=== PATIENT | female | born 1945 | race Caucasian/White ===

== ENCOUNTER 2017-01-13 11:40 | Observation (INO) | payer MEDICARE, OTHER ==
[2017-01-13 11:40] VITALS: BMI 21.9
--- NOTE | 2017-01-13 12:34 | C.PDOC ---
History Of Present Illness 71 Y/O FEMALE C/O WOUND AND REDNESS TO LEFT LOWER LEG. PT STATES SHE WAS EVALUATED BY DR. DANIELSON 2 WKS AGO AND GIVEN TETANUS SHOT. PT STATES INITIAL ITCHINESS, NOW NOTES DRAINAGE FROM AREA. DENIES FEVERS, CHILLS. NO HX OF DM. PT ACCOMPANIED BY SON AT BEDSIDE. PT TAKING UNKNOWN ABX, 500mg PER DAY FOR 7 DAYS, NOTES SHE FINISHED COURSE A COUPLE DAYS AGO. Time Seen by Provider: 01/13/17 12:17 Chief Complaint (Nursing): Abnormal Skin Integrity History Per: Patient, Family (SON) History/Exam Limitations: language barrier Onset/Duration Of Symptoms: Days Current Symptoms Are (Timing): Still Present Location Of Injury: Left: Leg Quality Of Symptoms: Draining Recent travel outside of the [place]: No Past Medical History Reviewed: Historical Data, Nursing Documentation, Vital Signs Vital Signs: Last Vital Signs Temp 98.4 F 01/13/17 11:59 Pulse 96 H 01/13/17 11:59 Resp 20 01/13/17 11:59 BP 151/83 H 01/13/17 11:59 Pulse Ox 99 01/13/17 15:47 - Medical History PMH: Arthritis (SLIGHT-GENERALIZED), Asthma (HOSPITALIZED X 2), HTN, Hypercholesterolemia - [facility] Procedures CATARAC PHACOEMULS/ASPIR (03/05/15) INSERT LENS AT CATAR EXT (03/05/15) Family History: States: Unknown Family Hx - Social History Hx Alcohol Use: No Hx Substance Use: No Review Of Systems Except As Marked, All Systems Reviewed And Found Negative. Constitutional: Negative for: Fever, Chills Skin: Positive for: Lesions (MULTIPLE LESIONS LEFT LOWER EXTREMITY) Neurological: Negative for: Weakness, Numbness Physical Exam - Physical Exam Appears: Non-toxic, No Acute Distress Skin: Warm, Dry Head: Atraumatic, Normacephalic Extremity: Normal ROM, Capillary Refill (< 2 SEC.), Swelling (GENERAL LOWER LEG SWELLING), Other (LESION 1 - MID LATERAL LEFT LOWER EXTREMITY: 5.0 x 5.0 cm AREA , WITH CENTRAL CRATER WITH PURULENT GRANULOMATOUS TISSUE, VESICULAR RING SURROUNDING WITH MULTIPLE SMALL BLISTERS IN RING PATTERN. LESION 2 - 2.0 X 2.O ROUND SIMILAR PRESENTATION, EARLY CRATER LESION DEVELOPING, NO PUS OR DISCHARGE) Pulses: Left Dorsalis Pedis: Normal, Right Dorsalis Pedis: Normal Neurological/Psych: Oriented x3, Normal Motor, Normal Sensation ED Course And Treatment - Laboratory Results Result Diagrams: 01/13/17 13:34 01/13/17 13:34 O2 Sat by Pulse Oximetry: 99 (RA) Pulse Ox Interpretation: Normal - Other Rad LEFT TIB/FIB XRAY X-Ray: Viewed By Me, Read By Radiologist Interpretation: FINDINGS: BONES: There is no acute fracture or bone destruction. Bone alignment and mineralization are normal. JOINT SPACES: Unremarkable. OTHER FINDINGS: There is diffuse subcutaneous edema and soft tissue calcifications. IMPRESSION: No acute fracture or bone destruction. Diffuse subcutaneous edema. Progress - Re-Evaluation Re-evaluation Note: 01/13/17 13:05 TIB/FIB XR, BLOODWORK AND CULTURES ORDERED. TX VANCO AND ANCEF IV. 01/13/17 15:05 D/W CM GRACIA THANH GRAF IN ER 01/13/17 16:10 D/W DR ALVAREZ C/F PMD WILL ADMIT - Data Reviewed Data Reviewed: Lab, Diagnostic imaging, Old records - Continuity of Care Discussed patient case with:: Patient, Family-HIPPA compliant, Covering for PMD Disposition Counseled Patient/Family Regarding: Studies Performed, Diagnosis, Need For Followup, Rx Given - Disposition Referrals: YOUR,PMD [Other] Disposition: HOSPITALIZED Disposition Time: 15:01 Condition: STABLE Additional Instructions: [place] SEGN LO DIRIGIDO. SEGUIMIENTO CON CAGE PMD ESTA SEMANA. DEVOLUCIN EN QASIM DE FIEBRE> 100.6, SINTOMAS FALSOS. Print Language: HUNGARIAN - POA Present On Arrival: None - Clinical Impression Clinical Impression: Cellulitis, Chronic wound of extremity - Scribe Statement The provider has reviewed the documentation as recorded by the Sandraibchristy Crooks Provider Scribe Attestation: All medical record entries made by the Scribe were at my direction and personally dictated by me. I have reviewed the chart and agree that the record accurately reflects my personal performance of the history, physical exam, medical decision making, and the department course for this patient. I have also personally directed, reviewed, and agree with the discharge instructions and disposition. Decision To Admit - Pt Status Changed To: Hospital Disposition Of: Observation - . Bed Request Type: Regular Admitting Physician: Jacques Alvarez Patient Diagnosis: Cellulitis, Chronic wound of extremity
[2017-01-13] MEDS ORDERED: ceFAZolin 1 gm FROZEN Premix 50 ML IVPB ONE (13:11)
--- NOTE | 2017-01-13 13:26 | RAD ---
PROCEDURE: Radiographs of the left tibia and fibula. HISTORY: INVASIVE WOUND COMPARISON: None available. TECHNIQUE: Frontal and lateral views obtained. FINDINGS: BONES: There is no acute fracture or bone destruction. Bone alignment and mineralization are normal. JOINT SPACES: Unremarkable. OTHER FINDINGS: There is diffuse subcutaneous edema and soft tissue calcifications. IMPRESSION: No acute fracture or bone destruction. Diffuse subcutaneous edema.
[2017-01-13 13:38] LABS: BASO # 0.1 K/uL (0.0-0.2); BASO % 1.2 % (0.0-2.0); EOS # 0.4 K/uL (0.0-0.7); EOS % 5.1 % (0.0-4.0); HEMATOCRIT 36.6 % (34.0-47.0); LYMPH # 1.4 K/uL (1.0-4.3); LYMPH % 19.5 % (20.0-40.0); MEAN CELL VOLUME 90.6 fL (81.0-99.0); MEAN CORPUSCULAR HEMOGLOBIN 29.4 pg (27.0-31.0); MEAN CORPUSCULAR HGB CONC 32.4 g/dL (33.0-37.0); MEAN PLATELET VOLUME 8.4 fL (7.2-11.7); MONO # 0.7 K/uL (0.0-0.8); MONO % 9.3 % (0.0-10.0); NRBC % 0.1 % (0.0-2.0); RED CELL DISTRIBUTION WIDTH 15.5 % (11.5-14.5); WHITE BLOOD COUNT 7.1 K/uL (4.8-10.8)
[2017-01-13] MEDS: ceFAZolin IV 1 gm in Dextrose 50 ML IVPB STA ×2 (13:45→13:56)
[2017-01-13 13:47] LABS: CHLORIDE 99 mmol/L (98-107)
[2017-01-13 13:48] LABS: POTASSIUM 3.5 mmol/L (3.6-5.2); SODIUM 138 mmol/L (132-148)
[2017-01-13 13:50] LABS: GFR AFRICAN-AMERICAN > 60
[2017-01-13 13:51] LABS: BLOOD UREA NITROGEN 18 mg/dL (7-17); CALCIUM 8.6 mg/dl (8.6-10.4); CARBON DIOXIDE 25 mmol/L (22-30); GLUCOSE,RANDOM 137 mg/dL (65-105)
--- NOTE | 2017-01-13 16:29 | CP.PCM.HP ---
<Mariel Putnam - Last Filed: 01/13/17 17:11> History of Present Illness - History of Present Illness History of Present Illness: Internal medicine H & P for Hospitalist Service- Mariel Putnam, PGY-1 Pt S & E at bedside. 71F w/PMH sig for HTN, HLD, Asthma, OA, admitted for Left lateral leg pruritis x 3wks. Pt started scratching area with resulting lesion now present on left lateral calf approx [id number]. Reports intermittent pain 2/10, dull and non- radiating. Pt reports increased itchiness and drainage of clear yellow fluid that started 1 day VISCOSITY TESTER. Pt reports applying alcohol, neosporin, vaseline, and band aids without resolution. No inciting or aggravating factors identified. Denies N/V/F/C, CP, SOB, cough, numbness, tingling, weakness, changes in bowel or bladder habits, changes in eating habits, trauma to area. PMH: HTN, HLD, Asthma, OA PSH: BL catacter surgery in 2016 All:Lauryn SH:Patient lives with son, denies any history of tobacco use, alcohol use, drug use PMD:Bernie Present on Admission - Present on Admission Any Indicators Present on Admission: No History of DVT/PE: No History of Uncontrolled Diabetes: No Urinary Catheter: No Decubitus Ulcer Present: No Review of Systems - Review of Systems All systems: reviewed and no additional remarkable complaints except - Constitutional Constitutional: absent: Chills, Fever, Weakness - EENT Eyes: absent: Change in Vision Nose/Mouth/Throat: absent: Sore Throat - Cardiovascular Cardiovascular: Leg Ulcers. absent: Chest Pain, Dyspnea, Palpitations - Respiratory Respiratory: absent: Cough, Dyspnea - Gastrointestinal Gastrointestinal: absent: Constipation, Diarrhea, Nausea, Vomiting - Genitourinary Genitourinary: absent: Difficulty Urinating, Urinary Frequency - Musculoskeletal Musculoskeletal: absent: Numbness, Tingling - Integumentary Integumentary: Skin Ulcer, Swelling - Neurological Neurological: absent: Numbness, Tingling Past Patient History - Past Medical History & Family History Past Medical History?: Yes - Past Social History Smoking Status: Never Smoked - CARDIAC Hx Hypercholesterolemia: Yes Hx Hypertension: Yes - PULMONARY Hx Asthma: Yes (HOSPITALIZED X 2) - NEUROLOGICAL Hx Neurological Disorder: No - HEENT Hx HEENT Problems: No Hx Cataracts: Yes (left EYE) - RENAL Hx Chronic Kidney Disease: No - ENDOCRINE/METABOLIC Hx Endocrine Disorders: No - HEMATOLOGICAL/ONCOLOGICAL Hx Blood Disorders: No - INTEGUMENTARY Hx Dermatological Problems: No - MUSCULOSKELETAL/RHEUMATOLOGICAL Hx Arthritis: Yes (SLIGHT-GENERALIZED) - GASTROINTESTINAL Hx Gastrointestinal Disorders: No - GENITOURINARY/GYNECOLOGICAL Hx Genitourinary Disorders: No - PSYCHIATRIC Hx Substance Use: No - SURGICAL HISTORY Hx Surgeries: Yes Hx Cataract Extraction: Yes (RIGHT EYE) Hx Tubal Ligation: Yes (PT. BELIEVES -NOT SURE) - ANESTHESIA Hx Anesthesia: Yes Hx Anesthesia Reactions: No Hx Malignant Hyperthermia: No Meds Allergies/Adverse Reactions: Allergies Allergy/AdvReac Type Severity Reaction Status Date / Time No Known Allergies Allergy Verified 02/27/15 12:00 Physical Exam - Constitutional Appears: Non-toxic, No Acute Distress - Head Exam Head Exam: ATRAUMATIC, NORMAL INSPECTION, NORMOCEPHALIC - Eye Exam Eye Exam: EOMI, Normal appearance, PERRL Pupil Exam: NORMAL ACCOMODATION, PERRL - ENT Exam ENT Exam: Mucous Membranes Moist, Normal Exam - Neck Exam Neck exam: Positive for: Full Rom, Normal Inspection - Respiratory Exam Respiratory Exam: Clear to Auscultation Bilateral, NORMAL BREATHING PATTERN. absent: Rales, Rhonchi, Wheezes, Respiratory Distress, Stridor - Cardiovascular Exam Cardiovascular Exam: REGULAR RHYTHM, +S1, +S2 - GI/Abdominal Exam GI & Abdominal Exam: Normal Bowel Sounds, Soft. absent: Tenderness - Extremities Exam Extremities exam: Positive for: pedal edema (trace). Negative for: normal inspection (left lateral leg with small ulceration- non tender, slightly indurated, slightly erythematous, approx 1 x 2 cm, no fluctuance, no drainage expressed ), tenderness - Back Exam Back exam: FULL ROM, NORMAL INSPECTION. absent: paraspinal tenderness - Neurological Exam Neurological exam: Alert, CN II-XII Intact, Oriented x3 - Psychiatric Exam Psychiatric exam: Normal Affect, Normal Mood - Skin Skin Exam: Dry, Warm Additional comments: see extremity exam for left leg skin findings Results - Vital Signs Recent Vital Signs: Last Vital Signs Temp 98.4 F 01/13/17 11:59 Pulse 96 H 01/13/17 11:59 Resp 20 01/13/17 11:59 BP 151/83 H 01/13/17 11:59 Pulse Ox 99 01/13/17 16:12 - Labs Result Diagrams: 01/13/17 13:34 01/13/17 13:34 Labs: Laboratory Results - last 24 hr 01/13/17 13:34 WBC 7.1 RBC 4.04 Hgb 11.9 Hct 36.6 MCV 90.6 MCH 29.4 MCHC 32.4 L RDW 15.5 H Plt Count 217 MPV 8.4 Neut % (Auto) 64.9 Lymph % (Auto) 19.5 L [place] % (Auto) 9.3 Eos % (Auto) 5.1 H Baso % (Auto) 1.2 Neut # 4.6 Lymph # 1.4 [place] # 0.7 Eos # 0.4 Baso # 0.1 Sodium 138 Potassium 3.5 L Chloride 99 Carbon Dioxide 25 Anion Gap 17 BUN 18 H Creatinine 1.0 Est GFR ( Amer) > 60 Est GFR (Non-Af Amer) 54 Random Glucose 137 H Calcium 8.6 Assessment & Plan - Assessment and Plan (Free Text) Assessment: Cellulitic wound of left lateral leg No leukocytosis Afebrile FU Blood cxr FU Urine cxr X-ray of Tib/Fib w/diffuse subQ edema Cefazolin 500mg Q8H [facility] Wound care - Bacitracin Hx asthma Cont home med: Advair, Spiriva Hx HTN Cont home med: Lisinopril Hx HLD Cont home med: Crestor Hx Arthritis Tylenol PRN Cont home med: [employer] [place] 3, Vitamin B complex GI/DVT ppx Lovenox SCDs contraindicated due to leg wound Pepcid Ambulate Dispo Admit to Med Surg VS Q4H [facility] PT/OT Activity as lola OOBTC DW attending - Date & Time Date: 01/13/17 Time: 16:28 Decision To Admit - Pt Status Changed To: Hospital Disposition Of: Observation - . Bed Request Type: Regular Admitting Physician: Jacques Alvarez <Jacques Alvarez - Last Filed: 01/14/17 14:28> Results - Vital Signs Recent Vital Signs: Last Vital Signs Temp 97.9 F 01/14/17 07:46 Pulse 72 01/14/17 07:46 Resp 20 01/14/17 07:46 BP 128/84 01/14/17 07:46 Pulse Ox 97 01/14/17 07:46 - Labs Result Diagrams: 01/14/17 08:03 01/14/17 08:03 Labs: Laboratory Results - last 24 hr 01/14/17 08:03 WBC 5.3 RBC 4.08 Hgb 12.1 Hct 37.1 MCV 91.0 MCH 29.6 MCHC 32.5 L RDW 15.2 H Plt Count 210 MPV 7.7 Neut % (Auto) 58.8 Lymph % (Auto) 23.8 [place] % (Auto) 8.4 Eos % (Auto) 7.7 H Baso % (Auto) 1.3 Neut # 3.1 Lymph # 1.3 [place] # 0.4 Eos # 0.4 Baso # 0.1 Sodium 140 Potassium 3.9 Chloride 100 Carbon Dioxide 28 Anion Gap 16 BUN 15 Creatinine 0.9 Est GFR ( Amer) > 60 Est GFR (Non-Af Amer) > 60 Random Glucose 109 H Calcium 8.2 L Total Bilirubin 0.4 AST 30 ALT 29 Alkaline Phosphatase 80 Total Protein 7.0 Albumin 3.9 Globulin 3.0 Albumin/Globulin Ratio 1.3 Attending/Attestation - Attestation I have personally seen and examined this patient.: Yes I have fully participated in the care of the patient.: Yes I have reviewed all pertinent clinical information: Yes Notes (Text): 01/14/17 14:27 Patient was seen and examined at bedside with the resident at the time of admission Patient failed outpatient therapy for cellulitis. We will admit the patient for IV antibiotics We will also obtain wound care evaluation for the patient Discussed the plan of care with the resident the time of admission and agrees with the above history and physical and assessment/plan.
[2017-01-13] MEDS ORDERED: [UNRECOGNIZED DRUG - OTHER] PO SCH (16:45)
[2017-01-13] MEDS ORDERED: MULTIVIT PO SCH (16:45)
[2017-01-13] MEDS ORDERED: IRON PO SCH (16:45)
[2017-01-13] MEDS: Vitamin B Complex/Vitamin C Tab PO SCH (17:25)
[2017-01-13] MEDS: Omega-3-Acid Ethyl Esters 1 GM Cap PO SCH (17:26)
[2017-01-13] MEDS: Enoxaparin 40 mg Syringe SC SCH (17:31)
[2017-01-13 18:49] VITALS: RESP 20
[2017-01-13] MEDS: Bacitracin 500 Units/gm Oint Foilpak UD TOP SCH (21:48)
[2017-01-14] MEDS: Bacitracin 500 Units/gm Oint Foilpak UD TOP SCH ×2 (05:25→18:26)
[2017-01-14 08:10] LABS: BASO # 0.1 K/uL (0.0-0.2); BASO % 1.3 % (0.0-2.0); EOS # 0.4 K/uL (0.0-0.7); EOS % 7.7 % (0.0-4.0); HEMATOCRIT 37.1 % (34.0-47.0); LYMPH # 1.3 K/uL (1.0-4.3); LYMPH % 23.8 % (20.0-40.0); MEAN CORPUSCULAR HEMOGLOBIN 29.6 pg (27.0-31.0); MEAN CORPUSCULAR HGB CONC 32.5 g/dL (33.0-37.0); MEAN PLATELET VOLUME 7.7 fL (7.2-11.7); MONO # 0.4 K/uL (0.0-0.8); MONO % 8.4 % (0.0-10.0); RED CELL DISTRIBUTION WIDTH 15.2 % (11.5-14.5); WHITE BLOOD COUNT 5.3 K/uL (4.8-10.8)
[2017-01-14 08:37] LABS: CHLORIDE 100 mmol/L (98-107); SODIUM 140 mmol/L (132-148)
[2017-01-14 08:38] LABS: POTASSIUM 3.9 mmol/L (3.6-5.2)
[2017-01-14 08:40] LABS: ALB/GLOB RATIO 1.3 (1.0-2.1); ALKALINE PHOSPHATASE 80 U/L (38-126); ALT/SGPT 29 U/L (9-52); AST/SGOT 30 U/L (14-36); BILIRUBIN,TOTAL 0.4 mg/dL (0.2-1.3); BLOOD UREA NITROGEN 15 mg/dL (7-17); CARBON DIOXIDE 28 mmol/L (22-30); GFR AFRICAN-AMERICAN > 60; GLUCOSE,RANDOM 109 mg/dL (65-105)
[2017-01-14 08:41] LABS: CALCIUM 8.2 mg/dl (8.6-10.4)
[2017-01-14] MEDS: Vitamin B Complex/Vitamin C Tab PO SCH (09:28)
[2017-01-14] MEDS: Enoxaparin 40 mg Syringe SC SCH (09:28)
[2017-01-14] MEDS: Omega-3-Acid Ethyl Esters 1 GM Cap PO SCH (09:28)
[2017-01-14] MEDS ORDERED: Potassium Chloride 20 mEq ER Tab PO ONE (10:00)
[2017-01-14] MEDS: Fluticasone-Salmeterol 250-50mcg Diskus IH SCH (10:46)
[2017-01-14] MEDS: Tiotropium 18 mcg Cap For Inhalation IH SCH (10:47)
--- NOTE | 2017-01-14 16:06 | CP.PCM.PN ---
<Mariel Putnam - Last Filed: 01/14/17 16:06> Subjective - Date & Time of Evaluation Date of Evaluation: 01/14/17 Time of Evaluation: 09:00 - Subjective Subjective: Internal medicine progress note for Hospitalist Service- Mariel Putnam, PGY-1 Pt S & E at bedside. Pt w/o complaints overnight. Denies N/V/F/C, SOB, CP, abdominal pain, LLE pain , itching. Sleeping ok, eating ok, ambulating ok. Objective - Vital Signs/Intake and Output Vital Signs (last 24 hours): Temp Pulse Resp BP Pulse Ox 97.9 F 72 20 128/84 97 01/14/17 07:46 01/14/17 07:46 01/14/17 07:46 01/14/17 07:46 01/14/17 07:46 Intake and Output: 01/14/17 01/14/17 06:59 18:59 Intake Total 600 Balance 600 - Medications Medications: Current Medications Acetaminophen (Tylenol 325mg Tab) 650 mg PO Q6 PRN PRN Reason: Pain, moderate (4-7) Bacitracin (Bacitracin) 1 ea TOP Q12H [facility] Last Admin: 01/14/17 05:25 Dose: 1 ea Enoxaparin Sodium (Lovenox) 40 mg SC DAILY [facility] Last Admin: 01/14/17 09:28 Dose: 40 mg Famotidine (Pepcid) 20 mg PO BID [facility] Last Admin: 01/14/17 09:28 Dose: 20 mg Cefazolin Sodium 500 mg/ (Sodium Chloride) 100 mls @ 200 mls/hr IVPB Q8H [facility] Last Admin: 01/14/17 13:14 Dose: 200 mls/hr Lisinopril (Zestril) 20 mg PO DAILY [facility] Last Admin: 01/14/17 09:28 Dose: 20 mg [id number] Ethyl Esters (Lovaza) 1 gm PO DAILY [facility] Last Admin: 01/14/17 09:28 Dose: 1 gm Pneumococcal Polyvalent Vaccine (Pneumovax 23 Vaccine) 0.5 ml IM .ONCE ONE Stop: 01/15/17 10:01 Rosuvastatin Calcium (Crestor) 5 mg PO HS [facility] Last Admin: 01/13/17 22:01 Dose: 5 mg Fluticasone/Salmeterol (Advair Diskus 250/50) 1 puff IH RQD [facility] Last Admin: 01/14/17 10:46 Dose: Not Given Tiotropium [place] (Spiriva) 18 mcg IH RQD [facility] Last Admin: 01/14/17 10:47 Dose: Not Given Vitamin B Complex/Vitamin C (Berocca) 1 tab PO DAILY [facility] Last Admin: 01/14/17 09:28 Dose: 1 tab - Labs Labs: 01/14/17 08:03 01/14/17 08:03 - Constitutional Appears: Non-toxic, No Acute Distress - Head Exam Head Exam: ATRAUMATIC, NORMAL INSPECTION, NORMOCEPHALIC - Eye Exam Eye Exam: EOMI, Normal appearance, PERRL Pupil Exam: NORMAL ACCOMODATION, PERRL - ENT Exam ENT Exam: Mucous Membranes Moist, Normal Exam - Neck Exam Neck Exam: Full ROM, Normal Inspection - Respiratory Exam Respiratory Exam: Clear to Ausculation Bilateral, NORMAL BREATHING PATTERN - Cardiovascular Exam Cardiovascular Exam: REGULAR RHYTHM, +S1, +S2 - GI/Abdominal Exam GI & Abdominal Exam: Soft, Normal Bowel Sounds. absent: Tenderness - Extremities Exam Extremities Exam: Full ROM. absent: Pedal Edema, Tenderness Additional comments: Left lateral leg with 2 non healing ulcerations, one is lateral approx 1 x 2 cm large, the other is more superficial 0.5 x 0.5 cm in diameter, very slightly erythematous, slightly indurated, no fluctuance noted, non tender - Back Exam Back Exam: Full ROM, NORMAL INSPECTION - Neurological Exam Neurological Exam: Alert, Awake, CN II-XII Intact, Normal Gait, Oriented x3 - Psychiatric Exam Psychiatric exam: Normal Affect, Normal Mood - Skin Skin Exam: Dry, Normal Color, Warm. absent: Intact (see extremity exam for skin findings) Assessment and Plan - Assessment and Plan (Free Text) Assessment: Cellulitic wound of left lateral leg No leukocytosis Afebrile FU Blood cxr FU Urine cxr Wound cx prelim pending X-ray of Tib/Fib w/diffuse subQ edema Cont cefazolin 500mg Q8H [facility] Wound care - Bacitracin Wound care referral Hx asthma Cont home med: Advair, Spiriva Hx HTN Cont home med: Lisinopril Hx HLD Cont home med: Crestor Hx Arthritis Tylenol PRN Cont home med: [place] 3, Vitamin B complex GI/DVT ppx Lovenox SCDs contraindicated due to leg wound Pepcid Ambulate Dispo HHD PT/OT Activity as lola OOBTC Discharge pending nursing wound care evaluation DW attending <Jacques Alvarez - Last Filed: 01/14/17 17:59> Objective - Vital Signs/Intake and Output Vital Signs (last 24 hours): Temp Pulse Resp BP Pulse Ox 98.0 F 72 20 144/77 99 01/14/17 15:00 01/14/17 16:21 01/14/17 15:00 01/14/17 15:00 01/14/17 15:00 Intake and Output: 01/14/17 01/14/17 06:59 18:59 Intake Total 600 800 Balance 600 800 - Medications Medications: Current Medications Acetaminophen (Tylenol 325mg Tab) 650 mg PO Q6 PRN PRN Reason: Pain, moderate (4-7) Bacitracin (Bacitracin) 1 ea TOP Q12H [facility] Last Admin: 01/14/17 05:25 Dose: 1 ea Enoxaparin Sodium (Lovenox) 40 mg SC DAILY [facility] Last Admin: 01/14/17 09:28 Dose: 40 mg Famotidine (Pepcid) 20 mg PO BID [facility] Last Admin: 01/14/17 09:28 Dose: 20 mg Cefazolin Sodium 500 mg/ (Sodium Chloride) 100 mls @ 200 mls/hr IVPB Q8H [facility] Last Admin: 01/14/17 13:14 Dose: 200 mls/hr Lisinopril (Zestril) 20 mg PO DAILY [facility] Last Admin: 01/14/17 09:28 Dose: 20 mg Cesue-1-[place]ou[place] Ethyl Esters (Lovaza) 1 gm PO DAILY [facility] Last Admin: 01/14/17 09:28 Dose: 1 gm Pneumococcal Polyvalent Vaccine (Pneumovax 23 Vaccine) 0.5 ml IM .ONCE ONE Stop: 01/15/17 10:01 Rosuvastatin Calcium (Crestor) 5 mg PO [facility] Last Admin: 01/13/17 22:01 Dose: 5 mg Fluticasone/Salmeterol (Advair Diskus 250/50) 1 puff IH RQD [facility] Last Admin: 01/14/17 10:46 Dose: Not Given Tiotropium [place] (Spiriva) 18 mcg IH RQD [facility] Last Admin: 01/14/17 10:47 Dose: Not Given Vitamin B Complex/Vitamin C (Berocca) 1 tab PO DAILY [facility] Last Admin: 01/14/17 09:28 Dose: 1 tab - Labs Labs: 01/14/17 08:03 01/14/17 08:03 Attending/Attestation - Attestation I have personally seen and examined this patient.: Yes I have fully participated in the care of the patient.: Yes I have reviewed all pertinent clinical information, including history, physical exam and plan: Yes Notes (Text): 01/14/17 17:57 Patient was seen and examined at bedside with the resident Leg cellulitis is improving Continue IV antibiotics Wound care evaluation is pending Discussed the plan of care with the resident and I agree with above history and physical and assessment/plan by the resident
[2017-01-15] MEDS: Bacitracin 500 Units/gm Oint Foilpak UD TOP SCH (05:02)
[2017-01-15 08:03] LABS: BASO # 0.1 K/uL (0.0-0.2); BASO % 1.1 % (0.0-2.0); EOS # 0.5 K/uL (0.0-0.7); HEMATOCRIT 37.8 % (34.0-47.0); LYMPH # 1.4 K/uL (1.0-4.3); LYMPH % 25.4 % (20.0-40.0); MEAN CELL VOLUME 90.4 fL (81.0-99.0); MEAN CORPUSCULAR HEMOGLOBIN 29.6 pg (27.0-31.0); MEAN CORPUSCULAR HGB CONC 32.7 g/dL (33.0-37.0); MONO # 0.5 K/uL (0.0-0.8); MONO % 9.9 % (0.0-10.0); NRBC % 0.1 % (0.0-2.0); RED CELL DISTRIBUTION WIDTH 15.4 % (11.5-14.5); WHITE BLOOD COUNT 5.4 K/uL (4.8-10.8)
[2017-01-15 08:13] VITALS: BP 122/70; PULSE 70; TEMP 98.5; O2SAT 95
[2017-01-15 09:25] LABS: CHLORIDE 103 mmol/L (98-107)
[2017-01-15 09:26] LABS: POTASSIUM 3.9 mmol/L (3.6-5.2); SODIUM 140 mmol/L (132-148)
[2017-01-15 09:28] LABS: ALB/GLOB RATIO 1.2 (1.0-2.1); ALKALINE PHOSPHATASE 84 U/L (38-126); AST/SGOT 35 U/L (14-36); BILIRUBIN,TOTAL 0.3 mg/dL (0.2-1.3); CARBON DIOXIDE 23 mmol/L (22-30); GFR AFRICAN-AMERICAN > 60; GLUCOSE,RANDOM 108 mg/dL (65-105); TOTAL PROTEIN 6.8 g/dL (6.3-8.3)
[2017-01-15 09:29] LABS: ALT/SGPT 31 U/L (9-52); CALCIUM 8.2 mg/dl (8.6-10.4)
[2017-01-15 09:47] LABS: BLOOD UREA NITROGEN 21 mg/dL (7-17)
[2017-01-15] MEDS ORDERED: Pneumococcal 23-Valent Vaccine IM ONE (10:00)
[2017-01-15] MEDS: Omega-3-Acid Ethyl Esters 1 GM Cap PO SCH (10:02)
[2017-01-15] MEDS: Vitamin B Complex/Vitamin C Tab PO SCH (10:02)
[2017-01-15] MEDS: Enoxaparin 40 mg Syringe SC SCH (10:03)
[2017-01-15] MEDS: Fluticasone-Salmeterol 250-50mcg Diskus IH SCH (11:06)
[2017-01-15] MEDS: Tiotropium 18 mcg Cap For Inhalation IH SCH (11:06)
--- NOTE | 2017-01-15 14:10 | CP.PCM.DIS ---
<PutnamMariel - Last Filed: 01/15/17 15:11> Provider - Provider Date of Admission: 01/13/17 16:12 Attending physician: Jacques Alvarez MD Primary care physician: Bernie Consults: None Time Spent in preparation of Discharge (in minutes): 60 Hospital Course - Lab Results Lab Results: Micro Results 01/13/17 20:30 Blood Blood Culture - Preliminary NO GROWTH AFTER 24 HOURS 01/13/17 20:30 Blood Blood Culture - Preliminary NO GROWTH AFTER 24 HOURS Most Recent Lab Values WBC 5.4 K/uL (4.8-10.8) 01/15/17 07:55 RBC 4.18 Mil/uL (3.80-5.20) 01/15/17 07:55 Hgb 12.4 g/dL (11.0-16.0) 01/15/17 07:55 Hct 37.8 % (34.0-47.0) 01/15/17 07:55 MCV 90.4 fL (81.0-99.0) 01/15/17 07:55 MCH 29.6 pg (27.0-31.0) 01/15/17 07:55 MCHC 32.7 g/dL (33.0-37.0) L 01/15/17 07:55 RDW 15.4 % (11.5-14.5) H 01/15/17 07:55 Plt Count 209 K/uL (130-400) 01/15/17 07:55 MPV 8.0 fL (7.2-11.7) 01/15/17 07:55 Neut % (Auto) 54.6 % (50.0-75.0) 01/15/17 07:55 Lymph % (Auto) 25.4 % (20.0-40.0) 01/15/17 07:55 [place] % (Auto) 9.9 % (0.0-10.0) 01/15/17 07:55 Eos % (Auto) 9.0 % (0.0-4.0) H 01/15/17 07:55 Baso % (Auto) 1.1 % (0.0-2.0) 01/15/17 07:55 Neut # 3.0 K/uL (1.8-7.0) 01/15/17 07:55 Lymph # 1.4 K/uL (1.0-4.3) 01/15/17 07:55 [place] # 0.5 K/uL (0.0-0.8) 01/15/17 07:55 Eos # 0.5 K/uL (0.0-0.7) 01/15/17 07:55 Baso # 0.1 K/uL (0.0-0.2) 01/15/17 07:55 Sodium 140 mmol/L (132-148) 01/15/17 07:55 Potassium 3.9 mmol/L (3.6-5.2) 01/15/17 07:55 Chloride 103 mmol/L (98-107) 01/15/17 07:55 Carbon Dioxide 23 mmol/L (22-30) 01/15/17 07:55 Anion Gap 18 (10-20) 01/15/17 07:55 BUN 21 mg/dL (7-17) H 01/15/17 07:55 Creatinine 0.9 MG/DL (0.7-1.2) 01/15/17 07:55 Est GFR ( Amer) > 60 01/15/17 07:55 Est GFR (Non-Af Amer) > 60 01/15/17 07:55 Random Glucose 108 mg/dL (65-105) H 01/15/17 07:55 Calcium 8.2 mg/dl (8.6-10.4) L 01/15/17 07:55 Total Bilirubin 0.3 mg/dL (0.2-1.3) 01/15/17 07:55 AST 35 U/L (14-36) 01/15/17 07:55 ALT 31 U/L (9-52) 01/15/17 07:55 Alkaline Phosphatase 84 U/L (38-126) 01/15/17 07:55 Total Protein 6.8 g/dL (6.3-8.3) 01/15/17 07:55 Albumin 3.7 g/dL (3.5-5.0) 01/15/17 07:55 Globulin 3.2 gm/dL (2.2-3.9) 01/15/17 07:55 Albumin/Globulin Ratio 1.2 (1.0-2.1) 01/15/17 07:55 - Hospital Course Hospital Course: 71F w/PMH sig for HTN, HLD, Asthma, OA, admitted for Left lateral leg pruritis x 3wks. Pt started scratching area with resulting lesion now present on left lateral calf approx [id number]. Reports intermittent pain 2/10, dull and non- radiating. Pt reports increased itchiness and drainage of clear yellow fluid that started 1 day [employer]. Pt reports applying alcohol, neosporin, vaseline, and band aids without resolution. No inciting or aggravating factors identified. Denies N/V/F/C, CP, SOB, cough, numbness, tingling, weakness, changes in bowel or bladder habits, changes in eating habits, trauma to area. Pt admitted to hospital, started on IV antibiotics for left lower leg wound. Home medications were restarted. Pt was seen/evaluated by wound care nurse with wound care instructions rendered. Pt was stable, no complaints throughout duration of hospitalization. Pt stable and ready for discharge home with wound care supplies. Pt to follow up with [facility] next wednesday for wound care. Diagnoses Non healing wounds of Left lateral leg, asthma, HTN, hyperlipidemia, arthritis Please see EMR for full account of hospitalization. - Date & Time of H&P Date of H&P: 01/13/17 Time of H&P: 16:27 Discharge Exam - Head Exam Head Exam: ATRAUMATIC, NORMAL INSPECTION, NORMOCEPHALIC - Eye Exam Eye Exam: EOMI, Normal appearance, PERRL Pupil Exam: NORMAL ACCOMODATION, PERRL - ENT Exam ENT Exam: Mucous Membranes Moist, Normal Exam - Neck Exam Neck exam: Full Rom, Normal Inspection - Respiratory Exam Respiratory Exam: Clear to PA & Lateral, NORMAL BREATHING PATTERN, UNREMARKABLE - Cardiovascular Exam Cardiovascular Exam: REGULAR RHYTHM, +S1, +S2 - GI/Abdominal Exam GI & Abdominal Exam: Normal Bowel Sounds, Soft, Unremarkable. absent: Tenderness - Extremities Exam Extremities exam: full ROM Additional comments: Left lateral leg with small 1 x 2 cm non healing wound, posterior leg with 1 x 1 cm non healing wound- minimal cellulitis, minimal induration - Back Exam Back exam: FULL ROM, NORMAL INSPECTION - Neurological Exam Neurological exam: Alert, CN II-XII Intact, Oriented x3 - Psychiatric Exam Psychiatric exam: Normal Affect, Normal Mood - Skin Skin Exam: Dry, Normal Color, Warm Additional comments: Please see extremity exam for skin findings Discharge Plan - Discharge Medications Prescriptions: Clindamycin [Cleocin] 300 mg PO Q8H #21 cap - Follow Up Plan Condition: STABLE Disposition: HOME/ ROUTINE Additional Instructions: Patient medically stable for discharge as per Dr. Alvarez. Patient is to change her dressing daily, applying medihoney, then gauze, then securing the gauze to the leg by wrapping a krilex dressing around her leg and securing it with tape. You may resume your home medicines. Please follow up with your primary care physician within 1 week after discharge from hospital. You have been set up to be seen by the [facility] next wednesday, please make sure you do not miss that appointment. Please return to hospital if you have a recurrence of symptoms. [place] SEGN LO DIRIGIDO. SEGUIMIENTO CON CAGE PMD ESTA SEMANA. DEVOLUCIN EN QASIM DE FIEBRE> 100.6, SINTOMAS FALSOS. Referrals: YOUR,PMD [Other] <Jacques Alvarez - Last Filed: 01/15/17 15:23> Provider - Provider Date of Admission: 01/13/17 16:12 Attending physician: Jacques Alvarez MD Hospital Course - Lab Results Lab Results: Micro Results 01/13/17 20:30 Blood Blood Culture - Preliminary NO GROWTH AFTER 24 HOURS 01/13/17 20:30 Blood Blood Culture - Preliminary NO GROWTH AFTER 24 HOURS Most Recent Lab Values WBC 5.4 K/uL (4.8-10.8) 01/15/17 07:55 RBC 4.18 Mil/uL (3.80-5.20) 01/15/17 07:55 Hgb 12.4 g/dL (11.0-16.0) 01/15/17 07:55 Hct 37.8 % (34.0-47.0) 01/15/17 07:55 MCV 90.4 fL (81.0-99.0) 01/15/17 07:55 MCH 29.6 pg (27.0-31.0) 01/15/17 07:55 MCHC 32.7 g/dL (33.0-37.0) L 01/15/17 07:55 RDW 15.4 % (11.5-14.5) H 01/15/17 07:55 Plt Count 209 K/uL (130-400) 01/15/17 07:55 MPV 8.0 fL (7.2-11.7) 01/15/17 07:55 Neut % (Auto) 54.6 % (50.0-75.0) 01/15/17 07:55 Lymph % (Auto) 25.4 % (20.0-40.0) 01/15/17 07:55 [place] % (Auto) 9.9 % (0.0-10.0) 01/15/17 07:55 Eos % (Auto) 9.0 % (0.0-4.0) H 01/15/17 07:55 Baso % (Auto) 1.1 % (0.0-2.0) 01/15/17 07:55 Neut # 3.0 K/uL (1.8-7.0) 01/15/17 07:55 Lymph # 1.4 K/uL (1.0-4.3) 01/15/17 07:55 [place] # 0.5 K/uL (0.0-0.8) 01/15/17 07:55 Eos # 0.5 K/uL (0.0-0.7) 01/15/17 07:55 Baso # 0.1 K/uL (0.0-0.2) 01/15/17 07:55 Sodium 140 mmol/L (132-148) 01/15/17 07:55 Potassium 3.9 mmol/L (3.6-5.2) 01/15/17 07:55 Chloride 103 mmol/L (98-107) 01/15/17 07:55 Carbon Dioxide 23 mmol/L (22-30) 01/15/17 07:55 Anion Gap 18 (10-20) 01/15/17 07:55 BUN 21 mg/dL (7-17) H 01/15/17 07:55 Creatinine 0.9 MG/DL (0.7-1.2) 01/15/17 07:55 Est GFR ( Amer) > 60 01/15/17 07:55 Est GFR (Non-Af Amer) > 60 01/15/17 07:55 Random Glucose 108 mg/dL (65-105) H 01/15/17 07:55 Calcium 8.2 mg/dl (8.6-10.4) L 01/15/17 07:55 Total Bilirubin 0.3 mg/dL (0.2-1.3) 01/15/17 07:55 AST 35 U/L (14-36) 01/15/17 07:55 ALT 31 U/L (9-52) 01/15/17 07:55 Alkaline Phosphatase 84 U/L (38-126) 01/15/17 07:55 Total Protein 6.8 g/dL (6.3-8.3) 01/15/17 07:55 Albumin 3.7 g/dL (3.5-5.0) 01/15/17 07:55 Globulin 3.2 gm/dL (2.2-3.9) 01/15/17 07:55 Albumin/Globulin Ratio 1.2 (1.0-2.1) 01/15/17 07:55 Attending/Attestation - Attestation I have personally seen and examined this patient.: Yes I have fully participated in the care of the patient.: Yes I have reviewed all pertinent clinical information, including history, physical exam and plan: Yes Notes (Text): 01/15/17 15:22 Patient was seen and examined at bedside with the resident today Patient is feeling better There is no swelling or redness or pain at the site of the leg wound Patient evaluated by wound care nurse and instructions provided for discharge of the patient I agree with the above discharge note by the resident
== END 2017-01-15 16:05 | disposition home or self-care (01) ==
LOC: C.ER 11:40 → C.9E 16:12 → C.3T 17:03
PROVIDERS: ADMIT Internal Medicine; ATTEND Internal Medicine
DX: L03.116 Cellulitis of left lower limb (principal); Z23 Encounter for immunization; I10 Essential (primary) hypertension; E78.5 Hyperlipidemia, unspecified; J45.909 Unspecified asthma, uncomplicated; Z68.39 Body mass index [BMI] 39.0-39.9, adult
CPT/HCPCS: 36415; 73590; 80048; 80053; 85025; 87040; 87070; 96365; 96366; 96368; 96372; 97116; 97162; 97165; 97530; 99285; G0378; G8978; G8979; G8980; G8987; G8988; G8989; J0690; J1650; J3370

== ENCOUNTER 2017-11-25 07:06 | Day surgery (SDC) | payer MEDICARE, OTHER ==
[2017-11-25 08:03] VITALS: BMI 38.9
--- NOTE | 2017-11-25 09:14 | CP.SDSHP ---
Same Day Surgery H & P - History Proposed Procedure: COLONSCOPY Pre-Op Diagnosis: SEE NOTES - Previous Medical/Surgical History Cardiac: Hypertension Pulmonary: Asthma Endocrine/Metabolic: Other Neuro: Backaches - Allergies Allergies: Allergies No Known Allergies Allergy (Verified 11/25/17 08:02) - Physical Exam General Appearance: N Vital Signs: Vital Signs 11/25/17 07:55 Temperature 97.0 F L Pulse Rate 61 Respiratory 19 Rate Blood Pressure 135/62 O2 Sat by Pulse 98 Oximetry Mental Status: Alert & Oriented x3 Neuro: WNL Heart: Other Lungs: Other GI: WNL - {Optional Preform as Required} Breast: WNL Abdomen: WNL Rectal: Other Integument: WNL : WNL Ortho: Other ENT: WNL - Impression Pt. Evaluated Today:Candidate for Anesthesia & Procedure: Yes - Date & Time Time: 09:14 Short Stay Discharge - Short Stay Discharge Admitting Diagnosis/Reason for Visit: ENCOUNTER FOR SCREENING FOR MALIGNANT NEOPLASM OF Disposition: HOME/ ROUTINE
[2017-11-25] MEDS ORDERED: Propofol 10 mg/ml Inj (20 ML) ONE (09:15)
[2017-11-25] MEDS ORDERED: Lactated Ringer's 1,000 ML IV ONE (09:18)
[2017-11-25] MEDS ORDERED: Glucagon Recombinant 1 mg Inj ONE (09:25)
[2017-11-25] MEDS ORDERED: Belladonna-Phenobarbital PO ONE (09:50)
[2017-11-25 11:42] VITALS: TEMP 97.5; O2SAT 100
[2017-11-25 12:04] VITALS: BP 115/57; PULSE 75; RESP 16
== END 2017-11-25 10:53 | disposition home or self-care (01) ==
LOC: C.ENDO 07:06
PROVIDERS: ATTEND Specialist
DX: Z12.11 Encounter for screening for malignant neoplasm of colon (principal); I10 Essential (primary) hypertension; J45.909 Unspecified asthma, uncomplicated; K52.9 Noninfective gastroenteritis and colitis, unspecified; K64.8 Other hemorrhoids; K57.30 Diverticulosis of large intestine without perforation or abscess without bleeding
CPT/HCPCS: 45380; 88305; J1610; J2704; J7120